=== PATIENT | male | born 1940 | race Caucasian/White ===

== ENCOUNTER → 2019-10-25 | Outpatient (CLI) | payer MEDICARE, SELFPAY | END | disposition home or self-care (01) | PROVIDERS: PCP Family Medicine; Referring Provider Family Medicine; Visit Provider Family Medicine | DX: Z20.828 Contact with and (suspected) exposure to other viral communicable diseases (principal) | CPT/HCPCS: 87635; G2023; U0003 ==

== ENCOUNTER 2019-11-27 14:36 | Inpatient (IN) | payer MEDICARE, SELFPAY ==
[2019-11-27] VITALS (15 sets, daily range): BP systolic 98–157; BP diastolic 61–74; PULSE 67–92; RESP 16–22; TEMP 36.9–38.9; O2SAT 94–99; BMI 25.1; BMI 24.2
--- NOTE | 2019-11-27 15:03 | EKG12_ITS ---
Test Reason : SICK Blood Pressure : / mmHG Vent. Rate : 085 BPM Atrial Rate : 085 BPM P-R Int : 114 ms QRS Dur : 122 ms QT Int : 382 ms P-R-T Axes : 017 -40 018 degrees QTc Int : 454 ms Sinus rhythm with Premature atrial complexes Left axis deviation Right bundle branch block Abnormal ECG Confirmed by MATEO MAO, MELANY ([id number]), news video editor GEORGINA NOGUEIRA ([id number]) on 11/30/2019 9:33:22 AM Referred By: MICHAELA Confirmed By:MELANY GALINDO MD
--- NOTE | 2019-11-27 15:08 | ED.VISSUMM ---
- ER Visit Summary Date of Service: 11/27/19 Chief Complaint: Fever History of Present Illness: The patient is a 79 M who presents with fever and chills that began early this morning. Patient states his temperature at home was up to 102. Patient admits to shaking chills. Patient states he is feeling off balance and dizzy. states the patient has been having some falls today. also states the patient has been confused today. Patient admits to a cough and some shortness of breath. states she was trying to contact patient's primary care physician who wanted the patient to go to [place] for COVID test. states they were unable to go to [place] and came to the emergency department instead. Physical Examination: Vital signs are stable. Patient is afebrile here with a temperature of 99.9. Patient is in no acute distress. Oral mucosa is pink and moist. Neck is supple. Trachea is midline. There is no JVD. Heart was regular rate and rhythm. Lungs were diminished bilaterally. There is adequate respiratory effort noted. Abdomen is soft. Bowel sounds are normal. There is no tenderness. Cranial nerves II through XII are intact. There are no focal motor or sensory deficits noted. Extremities are intact. There is no calf tenderness or edema. There is erythema and warmth over the dorsal aspect of the left hand. There is an open skin tear over this area. There is no purulent drainage. Test Results: CBC shows a leukocytosis of 28.3. Comprehensive metabolic profile showed a creatinine of 1.51 and a BUN of 41. Total bilirubin was slightly elevated at 1.3. Urinalysis shows leukocyte esterase of 25 with 5-10 white blood cells and 2+ bacteria. EKG showed normal sinus rhythm with a rate of 85. There is a right bundle branch block pattern. There are no prior EKGs available for comparison. Portable chest x-ray was obtained. There is a right lower lobe infiltrate. This was interpreted by the radiologist and reviewed by myself. COVID swab was negative. Emergency Department Course and Treatment: Patient was given a dose of Tylenol here. Patient was given a dose of morphine. Patient was started on Unasyn and Zithromax to cover both cellulitis and pneumonia. Case was discussed with the hospitalist. Patient will be admitted. Patient and family understood and were agreeable with the plan. All questions were answered. Disposition: Admit to hospital Impression: 1. Sepsis 2. Cellulitis left hand 3. Pneumonia This note was generated with SMS [employer] dictation software. It may contain incorrect words, spelling, and punctuation that were not noted in review of the chart prior to signing ED Disposition - Plan for ED Patient: Disposition: Acute Care Hospital [facility] Diagnosis: Sepsis, Pneumonia, Cellulitis of left hand Referrals: Young Badillo III, MD [Primary Care Provider] -
--- NOTE | 2019-11-27 15:45 | RAD_ITS ---
STUDY: X-RAY CHEST REASON FOR EXAM: Male, 79 years old. BALANCE PROBLEMS, UNSTEADY ON FEET. ALSO FEVER/CHILLS. ACHES ALL OVER TECHNIQUE: Frontal view of the chest COMPARISON: None. FINDINGS: There are increased markings in the right lower lung, nonspecific and suboptimally evaluated. The rest of the lungs are clear. There is no pneumothorax, pulmonary edema, cardiac megaly or pleural effusions. Osseous structures are intact. RAD/Chest 1 View (Portable) IMPRESSION: Right lower lobe interstitial markings, unclear significance. Refer to confirmatory imaging, such as CT or optimal upright PA and lateral radiography repeat. Electronically Signed: Gale Sorto, at 16:09 EDT Tel , Service support ,
[2019-11-27] MEDS: Acetaminophen 500 MG Tablet 1000 MG PO (15:48)
[2019-11-27 15:53] LABS: International Normalized Ratio 1.1; Prothrombin Time (Protime)PT. 13.6 SECONDS (11.7-14.9)
[2019-11-27 15:54] LABS: Partial Thromboplast Time 27.2 Seconds (24.1-36.2)
[2019-11-27 16:02] LABS: Absolute Lymphocyte Count 1.55 X10^3/uL (0.83-4.51); Absolute Neutrophil Count 24.5 X10^3/uL (2.0-7.7); Basophil# 0.06 X10^3/uL; Basophil% 0.2 % (0-1); Eosinophil# 0.07 X10^3/uL; Eosinophils% 0.2 % (0-5); Hematocrit 50.7 % (40-54); Hemoglobin 16.6 g/dL (13.0-16.5); Lymphocyte # 1.55 X10^3/ul (4.0); Lymphocyte % 5.5 % (19-41); Mean Corp Hgb Conc 32.7 g/dL (32-36); Mean Corpuscular Hgb 29.8 pg (27.0-32.0); Mean Platelet Vol. 10.4 fl (6.2-12.0); Monocyte# 1.84 X10^3/uL; Monocyte% 6.5 % (0-10); NRBC Flagged by Analyzer 0 % (0-5); Neutrophil # 24.54 X10^3/uL (2.7-7.7); Neutrophil % 86.6 % (47-70); POSITIVE DIFFERENTIAL YES; POSITIVE MORPHOLOGY YES; Platelet Count 235 K/mm3 (150-450); RBC Distribution Width SD 43.3 fl (35.1-43.9); Red Blood Count 5.57 M/mm3 (4.6-6.2); White Blood Count 28.3 K/mm3 (4.4-11.0)
[2019-11-27 16:05] LABS: ALB/GLOB Ratio 1.2 RATIO (0.9-2.4); AST(SGOT) 11 U/L (15-37); Alanine Aminotransfer ALT/SGPT 11 U/L (16-61); Albumin, Serum 3.8 g/dL (3.2-5.0); Alkaline Phosphatase 78 U/L (45-117); Anion Gap 6 (5-15); BUN 21 mg/dL (7-18); BUN/Creat Ratio 13.9 RATIO (10-20); Chloride 105 mmol/L (98-107); Creatinine, Serum 1.51 mg/dL (0.70-1.30); EST Glomerular Filtration Rate 48 mL/min (>60); Est Glom Filt Rate - Afr Amer 58 mL/min (>60); Estimated Creatinine Clearance 40.29 ml/min; Globulin 3.2 g/dL (2.2-4.2); Glucose 130 mg/dL (74-106); Potassium 4.1 mmol/L (3.5-5.1); Sodium Level 137 mmol/L (136-145)
[2019-11-27 16:08] LABS: Differential Indicated SCAN CRITERIA MET
[2019-11-27 16:22] LABS: Lactic Acid 1.9 mmol/L (0.4-1.9)
[2019-11-27 16:30] LABS: Differential Comment SCANNED
[2019-11-27 16:34] LABS: Color, Urine Yellow (Yellow); Glucose, Dipstick Normal (Normal); Ketone-Dipstick 15 mg/dl (Negative); Leukocyte Esterase-Dipstick 25 /ul (Negative); Nitrite-Dipstick Negative (Negative); Occult Blood-Urine 10 /ul (Negative); Protein-Dipstick 30 mg/dl (Negative); Urine Clarity Clear (Clear); Urine Urobilinogen 4 mg/dl (Normal)
[2019-11-27 16:38] LABS: Urine Bilirubin Dipstick 1 mg/dL (Negative)
[2019-11-27 16:42] LABS: Bacteria 2+ /hpf (None Seen); Mucous, Urine 3+ /hpf (<or=2+); Red Blood Cells-Urine 0-5 SEEN /hpf (0-5); White Blood Cells 5-10 SEEN /hpf (0-5)
[2019-11-27 16:43] LABS: Squamous Epithelial Cells - UA 0-5 SEEN /hpf (0-5)
[2019-11-27 16:51] LABS: Probe Check PASS; Specimen Processing Control PASS
[2019-11-27] MEDS: Morphine 4 MG/ML Syringe IV (17:04)
--- NOTE | 2019-11-27 17:45 | HP.PCM_ITS ---
History of Present Illness Date of Admission: 11/27/19 Chief Complaint: fever, chills The patient is a 79 year old M with a past medical history of COPD and BPH. He was admitted through the ED on 11/27/2019 with a complaint of fever and chills. Symptoms have been going on for 1 day and his said he woke up early this morning with a temperature of 102 Fahrenheit. He had a cough which is occasionally productive of greenish sputum. He denied any chest pain, nausea vomiting or diarrhea. He denied any frequency with urination. He admitted to some redness and swelling on the dorsum of his left hand as well as some skin tears because he had bumped himself against something. On admission in the ED, vitals showed temperature of 100.1 Fahrenheit with respiratory rate of 22 and blood pressure of 117/73. Pulse rate was 76. Chemistry showed creatinine of 1.51 with total bilirubin of 1.3, sodium of 137 and potassium of 4.1. CBC showed WBC of 28.3 with hemoglobin of 16.6 and platelets of 235. EKG showed normal sinus rhythm with no acute ST changes. This x-ray showed right lower lobe interstitial markings of unclear significance. He has been admitted to be managed for sepsis due to community-acquired pneumonia and cellulitis of the left hand. [] Past Medical History Allergies No Known Allergies Allergy (Verified 11/27/19 14:36) Home Medications: Ambulatory Orders Medication Instructions Recorded Finasteride [Proscar] 5 mg PO DAILY 02/04/17 Lisinopril 5 mg PO DAILY 11/27/19 Surgical History: no surgical history Lives: Spouse/ Significant Other Smoking Status: Heavy Smoker (>10/day) Tobacco Use: Cigarettes Alcohol: None, Heavy Drugs: None - *Family History Maternal History Items: No pertinent history Paternal History Items: No pertinent history Review of Systems Constitutional: Reports: Chills, Fever. Denies: Anorexia, Malaise, Weakness, Fatigue Eyes: Denies: Blurred vision HEENT: Denies: Head Aches, Sinus Congestion, Sinus Drainage Cardiovascular: Denies: Chest Pain, Chest Pressure, Palpitations Respiratory: Reports: Cough, Shortness of Breath, Sputum production. Denies: Shortness of breath at rest, Shortness of breath upon exertion, Wheezing Gastrointestinal: Denies: Abdominal Pain, Nausea, Vomiting Genitourinary: Denies: Dysuria Musculoskeletal: Denies: Joint Pain, Joint Tenderness Skin: Denies: Rash, Wounds Neurological: Denies: Numbness, Tingling, Focal weakness Psychiatric: Denies: Anxiety, Depression, Homicidal Ideations, Suicidal Kenneth ations Hematologic/ Lymphatic: Denies: Easy Bruising, Easy Bleeding VTE Information - Inpt Only VTE Present on Admission: No VTE Pharm Prophylaxis ordered?: Yes Patient Problems: Active and Suspected Problems Sepsis (Acute) Pneumonia (Acute) Cellulitis of left hand (Acute) - Physical Exam Vitals/I&O's: Vital Signs Temp Pulse Resp BP Pulse Ox 100.1 F H 79 22 H 117/73 95 11/27/19 17:10 11/27/19 17:10 11/27/19 17:10 11/27/19 17:10 11/27/19 17:10 Oxygen Delivery Method Room Air Weight: 175 lb Body Mass Index (BMI) 25.1 General: Alert, Oriented x3, Cooperative, No apparent distress HEENT: Atraumatic, PERRLA, EOMI, Normocephalic Oral: Moist Mucosa Neck: Supple, No JVD, Negative Carotid Bruits Lungs: - - decreased breath sounds bibasally, no wheezes or crackles. on room air. Cardiovascular: Regular rate, No murmurs Abdomen: Bowel Sounds Present, Soft, Non Tender Extremities: No edema, Capillary Refill Less than 3 Seconds Skin: No rashes, No breakdown Musculoskeletal: No Tenderness to Palpation of Joints or Extremities Lymphatic: No Cervical, Supraclavicular, or Inguinal Adenopathy Neurological: Cranial nerves II-XII grossly intact, Neuro grossly intact, Motor Exam 5/5 strength throughout Psych/Mental Status: Normal Affect, Appropriate, Alert and oriented to time, place, person, mood and affect Laboratory Results 11/27/19 15:16: COVID-19 (URVASHI) Negative 11/27/19 15:30: WBC 28.3 H, RBC 5.57, Hgb 16.6 H, Hct 50.7, MCV 91.0, MCH 29.8, MCHC 32.7, RDW Std Deviation 43.3, RDW Coeff of Taylor 13.0, Plt Count 235, MPV 10.4, Immature Gran % (Auto) 1.000 H, Neut % (Auto) 86.6 H, Lymph % (Auto) 5.5 L , [place] % (Auto) 6.5, Eos % (Auto) 0.2, Baso % (Auto) 0.2, Absolute Neuts (auto) 24.5 H, Absolute Lymphs (auto) 1.55, Nucleated RBC % 0, Differential Comment SCANNED, Diff Path Review August11/27/19 15:30: PT 13.6, INR 1.1, APTT 27.2 11/27/19 15:30: Sodium 137, Potassium 4.1, Chloride 105, Carbon Dioxide 26.0, Anion Gap 6, BUN 21 H, Creatinine 1.51 H, Estim Creat Clear Calc 40.29, Est GFR (MDRD) Af Amer 58 L, Est GFR (MDRD) Non-Af 48 L, BUN/Creatinine Ratio 13.9, Glucose 130 H, Calcium 9.0, Total Bilirubin 1.30 H, AST 11 L, ALT 11 L, Alkaline Phosphatase 78, Total Protein 7.0, Albumin 3.8, Globulin 3.2, Albumin/Globulin Ratio 1.2 11/27/19 15:30: Lactic Acid 1.9 11/27/19 16:20: Urine Color Yellow, Urine Clarity Clear, Urine pH 7.0, Ur Specific [place] 1.010, Urine Protein 30 H, Urine Glucose (UA) Normal, Urine Ketones 15 H, Urine Occult Blood 10 H, Urine Nitrite Negative, Urine Bilirubin 1 H, Urine Urobilinogen 4 H, Ur Leukocyte Esterase 25 H, Urine RBC 0-5 SEEN, Urine WBC 5-10 SEEN, Ur Squamous Epith Cells 0-5 SEEN, Urine Bacteria 2+, Urine Mucus 3+ Diagnostic Data Chest X-Ray 11/27/19 15:45 IMPRESSION: Right lower lobe interstitial markings, unclear significance. Refer to confirmatory imaging, such as CT or optimal upright PA and lateral radiography repeat. Electronically Signed: Gale Sorto, at 16:09 EDT Tel , Service support , Assessment/Plan All Active Problems Sepsis (Acute) Pneumonia (Acute) Cellulitis of left hand (Acute) 79-year-old male admitted with a complaint of fever and chills. #Sepsis due to community acquired pneumonia and cellulitis of the left hand * Admit to PCU with telemetry. * WBC is 28 respiratory rate was 22 at time of review. SIRS criteria is 2/4. Fever was also 102.1 at time of admission. * Chest x-ray showed right lower lobe interstitial markings. * Will get a PA and lateral x-ray * Started on IV azithromycin and Unasyn in the ED on account of cellulitis as well. * Will continue IV azithromycin and Unasyn. * Check urine for strep and Legionella. Blood cultures pending. Also order sputum culture. * Hydrate with IV fluid normal saline at 150 cc per hour. * COVID test was negative. * #Community-acquired pneumonia: As under sepsis. #indeterminate tropoinins: has no chest pain. Will cycle troponins. EKG showed no acute ST changes. SL nitroglycerin prn. #Cellulitis of the dorsum of the left hand: As under sepsis #Hypertension: On lisinopril. #BPH: On Proscar #DVT prophylaxis: Lovenox #CODE STATUS: Full code * Patient counseled extensively about different types of CODE STATUS including full code, DNR CCA and DNR CCA. Patient elects to be full code. * Total [id number] time 16 minutes. Inpatient E&M: 16316 Init Hosp L3 Procedures: 22764 Advncd Care Plan 30 Min
[2019-11-27] MEDS: 0.9% Normal Saline 1,000 ML 999 ML IV ×3 (18:55→20:58)
[2019-11-27] MEDS: 0.9% Normal Saline 1,000 ML 150 ML IV (21:35)
[2019-11-27] MEDS: Acetaminophen 325 MG Tablet 650 MG PO (23:47)
[2019-11-28] VITALS (9 sets, daily range): BP systolic 114–133; BP diastolic 64–76; PULSE 69–90; RESP 16–18; TEMP 36.8–37.3; O2SAT 97–99
[2019-11-28] MEDS: 0.9% Normal Saline 1,000 ML 150 ML IV (04:08)
[2019-11-28 05:48] LABS: Absolute Lymphocyte Count 2.02 X10^3/uL (0.83-4.51); Absolute Neutrophil Count 20.9 X10^3/uL (2.0-7.7); Basophil# 0.04 X10^3/uL; Basophil% 0.2 % (0-1); Eosinophil# 0.02 X10^3/uL; Eosinophils% 0.1 % (0-5); Hematocrit 43.3 % (40-54); Hemoglobin 14.1 g/dL (13.0-16.5); Lymphocyte # 2.02 X10^3/ul (4.0); Lymphocyte % 8.2 % (19-41); Mean Corp Hgb Conc 32.6 g/dL (32-36); Mean Corpuscular Hgb 30.1 pg (27.0-32.0); Mean Corpuscular Volume 92.5 fL (80-94); Mean Platelet Vol. 10.6 fl (6.2-12.0); Monocyte# 1.32 X10^3/uL; Monocyte% 5.4 % (0-10); NRBC Flagged by Analyzer 0 % (0-5); Neutrophil # 20.91 X10^3/uL (2.7-7.7); Neutrophil % 84.7 % (47-70); POSITIVE DIFFERENTIAL YES; Platelet Count 170 K/mm3 (150-450); RBC Distribution Width CV 13.1 % (11.6-14.6); RBC Distribution Width SD 44.2 fl (35.1-43.9); Red Blood Count 4.68 M/mm3 (4.6-6.2); White Blood Count 24.7 K/mm3 (4.4-11.0)
[2019-11-28 06:08] LABS: Anion Gap 4 (5-15); BUN 19 mg/dL (7-18); BUN/Creat Ratio 15.3 RATIO (10-20); Calcium,Total 8.1 mg/dL (8.5-10.1); Chloride 109 mmol/L (98-107); Creatinine, Serum 1.24 mg/dL (0.70-1.30); EST Glomerular Filtration Rate 60 mL/min (>60); Est Glom Filt Rate - Afr Amer 72 mL/min (>60); Estimated Creatinine Clearance 49.06 ml/min; Glucose 113 mg/dL (74-106); Potassium 3.7 mmol/L (3.5-5.1); Sodium Level 140 mmol/L (136-145)
[2019-11-28 06:11] LABS: Differential Indicated SCAN CRITERIA MET
[2019-11-28 06:12] LABS: Differential Comment SCANNED
[2019-11-28] MEDS: Enoxaparin 30 MG/0.3 ML Syringe SC (08:16)
[2019-11-28] MEDS: Finasteride 5 MG Tablet PO (08:16)
--- NOTE | 2019-11-28 09:25 | RAD_ITS ---
STUDY: X-RAY - LEFT HAND REASON FOR EXAM: Male, 79 years old. redness and swelling metacarpal area TECHNIQUE: 3 view(s) of the hand. COMPARISON: None. FINDINGS: There is joint space narrowing of the radiocarpal articulation consistent with degenerative arthrosis. Generative changes at radioulnar joint with decreased joint space and osteophyte formation is present. There is diffuse demineralization of the carpal bones. Normal carpal articulations There is degenerative arthrosis of the carpometacarpal articulation of the thumb with lateral subluxation of the first metacarpus. Normal second through fifth carpometacarpal joints. Generalized metacarpi. There is degenerative arthrosis of the metacarpophalangeal (MCP) joints. There is degenerative arthrosis of the interphalangeal joint of the thumb with articular joint space narrowing. There is degenerative arthrosis of the metacarpophalangeal (MCP) joints. There is diffuse articular joint space narrowing of the proximal and distal interphalangeal joints of the second through fifth fingers, but without erosive changes or periarticular soft tissue swelling. Normal phalanges of the second through fifth fingers. The soft tissue structures are unremarkable. RAD/Hand Min 3 Views IMPRESSION: Diffuse demineralization and degenerative changes as above with no evidence of acute osseous injury. Underlying soft tissue inflammation and/or early infection is not excluded. Electronically Signed: Pablo Delarosa DO at 10:10 EDT , Service support ,
--- NOTE | 2019-11-28 12:57 | PCM.PN.HOSP ---
Patient Problems: Active and Suspected Problems Sepsis (Acute) Pneumonia (Acute) Cellulitis of left hand (Acute) Subjective: Patient seen and examined. He complains of pain and swelling on the dorsum of his left hand which is worsened since yesterday. He denies any shortness of breath, fever or chills, nausea or vomiting. Review systems otherwise negative. Labs and vitals reviewed. WBC has trended down to 24.7. Vitals/I&O's: Vital Signs Temp Pulse Resp BP Pulse Ox 98.2 F 70 16 133/74 H 97 11/28/19 08:04 11/28/19 08:04 11/28/19 08:04 11/28/19 08:04 11/28/19 08:04 Oxygen Delivery Method Room Air Weight: 168 lb 13.985 oz Body Mass Index (BMI) 24.2 Intake and Output for Last 24 Hours 11/26/19 11/27/19 11/28/19 23:59 23:59 23:59 Intake Total 3159.35 / 3159.35 2267.0 / 2267.0 Output Total 400 / 400 Balance 3159.35 / 2759.35 1867.0 / 1867.0 General: Alert, Oriented x3, Cooperative, No apparent distress HEENT: Atraumatic, PERRLA, EOMI, Normocephalic Oral: Moist Mucosa Neck: Supple, No JVD, Negative Carotid Bruits Lungs: - - mildly diminished breath sounds bibasally, no wheezes or crackles. on room air. Cardiovascular: Regular rate, No murmurs Abdomen: Bowel Sounds Present, Soft, Non Tender Extremities: No edema, Capillary Refill Less than 3 Seconds Skin: No rashes, No breakdown, dorsum of right hand is swollen, erythematous- with redness extending up to mid forearm, tender to touch. Superficial abrasion on dorsum of left hand. Worse than on admission. Musculoskeletal: No Tenderness to Palpation of Joints or Extremities Lymphatic: No Cervical, Supraclavicular, or Inguinal Adenopathy Neurological: Cranial nerves II-XII grossly intact, Neuro grossly intact, Motor Exam 5/5 strength throughout Psych/Mental Status: Normal Affect, Appropriate, Alert and oriented to time, place, person, mood and affect Microbiology Past 72 Hours 11/27/19 Unknown Urine, Clean Catch Streptococcus pneumoniae Antigen (M - Final 11/27/19 Unknown Urine, Clean Catch Legionella Antigen - Final Laboratory Results 11/27/19 15:16: COVID-19 (URVASHI) Negative 11/27/19 15:30: WBC 28.3 H, RBC 5.57, Hgb 16.6 H, Hct 50.7, MCV 91.0, MCH 29.8, MCHC 32.7, RDW Std Deviation 43.3, RDW Coeff of [place] 13.0, Plt Count 235, MPV 10.4, Immature Gran % (Auto) 1.000 H, Neut % (Auto) 86.6 H, Lymph % (Auto) 5.5 L, [place] % (Auto) 6.5, Eos % (Auto) 0.2, Baso % (Auto) 0.2, Absolute Neuts (auto) 24.5 H, Absolute Lymphs (auto) 1.55, Nucleated RBC % 0, Differential Comment SCANNED, Diff Path Review August foll 11/27/19 15:30: PT 13.6, INR 1.1, APTT 27.2 11/27/19 15:30: Sodium 137, Potassium 4.1, Chloride 105, Carbon Dioxide 26.0, Anion Gap 6, BUN 21 H, Creatinine 1.51 H, Estim Creat Clear Calc 40.29, Est GFR (MDRD) Af Amer 58 L, Est GFR (MDRD) Non-Af 48 L, BUN/Creatinine Ratio 13.9, Glucose 130 H, Calcium 9.0, Total Bilirubin 1.30 H, AST 11 L, ALT 11 L, Alkaline Phosphatase 78, Total Protein 7.0, Albumin 3.8, Globulin 3.2, Albumin/Globulin Ratio 1.2 11/27/19 15:30: Lactic Acid 1.9 11/27/19 16:20: Urine Color Yellow, Urine Clarity Clear, Urine pH 7.0, Ur Specific [place] 1.010, Urine Protein 30 H, Urine Glucose (UA) Normal, Urine Ketones 15 H, Urine Occult Blood 10 H, Urine Nitrite Negative, Urine Bilirubin 1 H, Urine Urobilinogen 4 H, Ur Leukocyte Esterase 25 H, Urine RBC 0-5 SEEN, Urine WBC 5-10 SEEN, Ur Squamous Epith Cells 0-5 SEEN, Urine Bacteria 2+, Urine Mucus 3+ 11/27/19 18:46: Troponin I 0.069 H 11/27/19 21:51: Troponin I 0.074 H 11/28/19 00:35: Troponin I 0.065 H 11/28/19 04:59: WBC 24.7 H, RBC 4.68, Hgb 14.1, Hct 43.3, MCV 92.5, MCH 30.1, MCHC 32.6, RDW Std Deviation 44.2 H, RDW Coeff of [place] 13.1, Plt Count 170, MPV 10.6, Immature Gran % (Auto) 1.400 H, Neut % (Auto) 84.7 H, Lymph % (Auto) 8.2 L, [place] % (Auto) 5.4, Eos % (Auto) 0.1, Baso % (Auto) 0.2, Absolute Neuts (auto) 20.9 H, Absolute Lymphs (auto) 2.02, Nucleated RBC % 0, Differential Comment SCANNED 11/28/19 04:59: Sodium 140, Potassium 3.7, Chloride 109 H, Carbon Dioxide 27.0, Anion Gap 4 L, BUN 19 H, Creatinine 1.24, Estim Creat Clear Calc 49.06, Est GFR (MDRD) Af Amer 72, Est GFR (MDRD) Non-Af 60, BUN/Creatinine Ratio 15.3, Glucose 113 H, Calcium 8.1 L Current Medications Acetaminophen (Tylenol) 650 mg PO Q6H PRN PRN PRN Reason: Pain Score 1-10/Temp > 100.7 F Last Admin: 11/27/19 23:47 Dose: 650 mg Documented by: Enoxaparin Sodium (Lovenox) 30 mg SC DAILY [facility] Last Admin: 11/28/19 08:16 Dose: 30 mg Documented by: Finasteride (Proscar) 5 mg PO DAILY [facility] Last Admin: 11/28/19 08:16 Dose: 5 mg Documented by: Guaifenesin (Robitussin) 20 ml PO Q4H PRN PRN PRN Reason: COUGH Ampicillin Sodium/Sulbactam (Sodium 3 gm/ Sodium Chloride) 112 mls @ 150 mls/hr IV Q6 [facility] Last Infusion: 11/28/19 12:30 Dose: Infused Documented by: Azithromycin 500 mg/ Dextrose 255 mls @ 250 mls/hr IV Q24@2200 [facility] Sodium Chloride () 500 mls @ 15 mls/hr IV PRN PRN PRN Reason: Blood Transfusion Sodium Chloride () 250 mls @ 15 mls/hr IV .[id number] PRN PRN Reason: Saline Flush Sodium Chloride () 250 mls @ 15 mls/hr IV .[id number] PRN PRN Reason: Additional IVPB Infusion Nitroglycerin (Nitrostat) 0.4 mg SUBLINGUAL Q5M PRN PRN Reason: CARDIAC/CHEST PAIN Nutritional Formula (Lactose Free) (Ensure Enlive) 120 ml PO 4X/DAY POOJA Last Admin: 11/28/19 12:32 Dose: 120 ml Documented by: Ondansetron HCl (Zofran) 4 mg IV Q8H PRN PRN PRN Reason: NAUSEA/VOMITING Sodium Chloride () 10 - 40 ml IV UD PRN PRN Reason: SALINE FLUSH Medical Necessity - Tobacco Use Smoking Status: Heavy Smoker (>10/day) Tobacco Use: Cigarettes Assessment/Plan All Active Problems Sepsis (Acute) Pneumonia (Acute) Cellulitis of left hand (Acute) 79-year-old male admitted with a complaint of fever and chills. #Sepsis due to community acquired pneumonia and cellulitis of the left hand wbc is down to 24.7 today swelling of dorsum of left hand is worse today; I think this may be due to wrap placed on the left wrist. Left wrist bandage removed. on IV unasyn and azithromycin urine for strep and legionella are negative. blood cultures pending COVID test was negative. #Community-acquired pneumonia: As under sepsis. #Cellulitis of the dorsum of the left hand As under sepsis. xray of the left hand done today o.a of worsening swelling showed diffuse demineralisation and degenerative changes with no evidence of acute osseous injury, with underlying soft tissue inflammation and/or early infection not excluded on IV unasyn plastic surgery consulted. #Indeterminate troponins: Initial troponin was 0.074 and trended down to 0.065. Patient has no chest pain. Patient absolutely fuses to have a stress test as he says 2 of his friends had stress test in the diet subsequently. Patient said he was 79 years and felt that if he was this time to go at this time to go. Despite counseling, patient still refused to have stress test if needed. #Hypertension: On lisinopril. #BPH: On Proscar #DVT prophylaxis: Lovenox #CODE STATUS: Full code Inpatient E&M: 57796 Subs Hosp L3
--- NOTE | 2019-11-28 19:29 | CPS ---
pt refused cont pox -nurse aware
[2019-11-28] MEDS: Acetaminophen 325 MG Tablet 650 MG PO (23:21)
[2019-11-29] VITALS (11 sets, daily range): BP systolic 119–161; BP diastolic 50–87; PULSE 55–81; RESP 14–18; TEMP 36.6–37.1; O2SAT 97–99
[2019-11-29] MEDS: 0.9% Saline Lock 10 ML Syringe IV ×3 (05:02→18:20)
[2019-11-29 06:04] LABS: Absolute Neutrophil Count 13.5 X10^3/uL (2.0-7.7); Basophil# 0.04 X10^3/uL; Basophil% 0.2 % (0-1); Eosinophil# 0.16 X10^3/uL; Eosinophils% 0.9 % (0-5); Hemoglobin 14.7 g/dL (13.0-16.5); Mean Corp Hgb Conc 33.4 g/dL (32-36); Mean Corpuscular Hgb 30.5 pg (27.0-32.0); Mean Corpuscular Volume 91.3 fL (80-94); Mean Platelet Vol. 10.8 fl (6.2-12.0); Monocyte% 5.2 % (0-10); NRBC Flagged by Analyzer 0 % (0-5); Neutrophil # 13.53 X10^3/uL (2.7-7.7); Neutrophil % 78.9 % (47-70); Platelet Count 162 K/mm3 (150-450); RBC Distribution Width CV 13.2 % (11.6-14.6); RBC Distribution Width SD 43.6 fl (35.1-43.9); Red Blood Count 4.82 M/mm3 (4.6-6.2); White Blood Count 17.2 K/mm3 (4.4-11.0)
[2019-11-29 06:28] LABS: Anion Gap 4 (5-15); BUN 17 mg/dL (7-18); BUN/Creat Ratio 15.9 RATIO (10-20); Calcium,Total 8.5 mg/dL (8.5-10.1); Chloride 113 mmol/L (98-107); Creatinine, Serum 1.07 mg/dL (0.70-1.30); EST Glomerular Filtration Rate 71 mL/min (>60); Est Glom Filt Rate - Afr Amer 86 mL/min (>60); Estimated Creatinine Clearance 56.85 ml/min; Glucose 97 mg/dL (74-106); Magnesium 1.9 mg/dL (1.6-2.6); Potassium 3.6 mmol/L (3.5-5.1); Sodium Level 143 mmol/L (136-145)
[2019-11-29] MEDS: Finasteride 5 MG Tablet PO (09:55)
--- NOTE | 2019-11-29 11:14 | PCM.CONS.GEN ---
Reason for Consult Date of Consultation: 11/29/19 Reason for Consultation: Infected open wound dorsum left hand with cellulitis. REFERRING PHYSICIAN: Dr. Barnhart. FREIGHT MANAGER: Dr. Espinoza. History of Present Illness: The patient is a 79 year old M who was admitted on 11/27/19 with a complaint of fever and chills. He had a cough which is occasionally productive of greenish sputum. He denied any chest pain, nausea vomiting or diarrhea. It was also noted he had increasing redness and swelling on the dorsum of his left hand with an open wound on the dorsum that the patient thinks he bumped his hand against something. He states his skin tears easily. Admission temp was 102.1. WBC was 28.3. Chest x-ray showed evidence of community acquired pneumonia. Left hand x-ray showed no fractures or bony abnormalities or foreign body. Has some degenerative changes. He met septic criteria. He was started on Unasyn and Azithromycin. His WBC has improved to 17.2. He is afebrile. He is breathing a little easier. He states his redness and swelling left hand have improved since starting the IV antibiotics. I was asked to evaluate this patient for surgical options for treatment. Past Medical History Past Medical History (Chronic Problems): Chronic Problems Smoker (Chronic) Allergies No Known Allergies Allergy (Verified 11/27/19 14:36) Home Medications: Ambulatory Orders Medication Instructions Recorded Finasteride [Proscar] 5 mg PO DAILY 02/04/17 Lisinopril 5 mg PO DAILY 11/27/19 Doxycycline [Vibramycin] 100 mg PO BID 7 Days #14 cap 11/30/19 Surgical History: no surgical history Lives: Spouse/ Significant Other Smoking Status: Heavy Smoker (>10/day) Tobacco Use: Cigarettes Alcohol: None, Heavy Drugs: None - *Family History Maternal History Items: No pertinent history Paternal History Items: No pertinent history Review of Systems Comment: Constitutional: Reports: Chills, Fever. Denies: Anorexia, Malaise, Weakness, Fatigue. Eyes: Denies: Blurred vision. HEENT: Denies: Head Aches, Sinus Congestion, Sinus Drainage. Cardiovascular: Denies: Chest Pain, Chest Pressure, Palpitations. Respiratory: Reports: Cough, Shortness of Breath, Sputum production. Denies: Shortness of breath at rest, Shortness of breath upon exertion, Wheezing. Gastrointestinal: Denies: Abdominal Pain, Nausea, Vomiting. Genitourinary: Denies: Dysuria. Musculoskeletal: Denies: Joint Pain, Joint Tenderness. Skin: Denies: Rash, Wounds. Neurological: Denies: Numbness, Tingling, Focal weakness. Psychiatric: Denies: Anxiety, Depression, Homicidal Ideations, Suicidal Ideations. Hematologic/ Lymphatic: Denies: Easy Bruising, Easy Bleeding Patient Problems: Active and Suspected Problems Sepsis (Acute) Pneumonia (Acute) Cellulitis of left hand (Acute) - Physical Exam Vitals/I&O's: General: Alert, Oriented x3, Cooperative. HEENT: PERRLA, EOMI. Oral: Moist Mucosa Neck: Supple, nontender. No cervical adenopathy. Lungs: - - Decreased breath sounds at the bases. No wheezes. Cardiovascular: Regular rate and rhythm. Abdomen: Soft, Nondistended. Extremities: Patient is right hand dominant. On the left hand there is mild swelling and redness dorsum of hand and extending onto the MP joints. He can make a fist. Fingers are warm with good capillary refill. Radial pulses are palpable. No axillary adenopathy. No sensory deficits. On the dorsum left hand by long finger is a traumatic open wound that measures 1 x 1 cm. Some yellowish drainage was expressed. No purulence noted. Lymphatic: No Cervical, Supraclavicular, or Inguinal Adenopathy Neurological: Cranial nerves II-XII grossly intact. Psych/Mental Status: Normal Affect, Appropriate. Vital Signs Temp Pulse Resp BP Pulse Ox 97.9 F 75 16 138/74 H 99 11/29/19 09:48 11/29/19 09:48 11/29/19 09:48 11/29/19 09:48 11/29/19 09:48 Oxygen Delivery Method Room Air Weight: 168 lb 13.985 oz Body Mass Index (BMI) 24.2 Intake and Output for Last 24 Hours 11/27/19 11/28/19 11/29/19 23:59 23:59 23:59 Intake Total 3159.35 / 3159.35 2634.25 / 2634.25 224 / 224 Output Total 400 / 400 Balance 3159.35 / 2759.35 2234.25 / 2234.25 224 / 224 Microbiology Past 72 Hours 11/27/19 16:20 Urine, Clean Catch Urine Culture - Final Mixed Gram Positive Organisms 11/27/19 Unknown Urine, Clean Catch Streptococcus pneumoniae Antigen (M - Final 11/27/19 Unknown Urine, Clean Catch Legionella Antigen - Final Laboratory Results 11/29/19 05:25: WBC 17.2 H, RBC 4.82, Hgb 14.7, Hct 44.0, MCV 91.3, MCH 30.5, MCHC 33.4, RDW Std Deviation 43.6, RDW Coeff of Taylor 13.2, Plt Count 162, MPV 10.8, Immature Gran % (Auto) 0.800, Neut % (Auto) 78.9 H, Lymph % (Auto) 14.0 L, [place]ell % (Auto) 5.2, Eos % (Auto) 0.9, Baso % (Auto) 0.2, Absolute Neuts (auto) 13.5 H, Absolute Lymphs (auto) 2.40, Nucleated RBC % 0 11/29/19 05:25: Sodium 143, Potassium 3.6, Chloride 113 H, Carbon Dioxide 26.0, Anion Gap 4 L, BUN 17, Creatinine 1.07, Estim Creat Clear Calc 56.85, Est GFR (MDRD) Af Amer 86, Est GFR (MDRD) Non-Af 71, BUN/Creatinine Ratio 15.9, Glucose 97, Calcium 8.5, Magnesium 1.9 Diagnostic Data Chest X-Ray 11/27/19 15:45 IMPRESSION: Right lower lobe interstitial markings, unclear significance. Refer to confirmatory imaging, such as CT or optimal upright PA and lateral radiography repeat. Electronically Signed: Gale Sorto, at 16:09 EDT Tel , Service support , Hand X-Ray 11/28/19 09:25 IMPRESSION: Diffuse demineralization and degenerative changes as above with no evidence of acute osseous injury. Underlying soft tissue inflammation and/or early infection is not excluded. Electronically Signed: Pablo Delarosa DO at 10:10 EDT , Service support , Current Medications Acetaminophen (Tylenol) 650 mg PO Q6H PRN PRN PRN Reason: Pain Score 1-10/Temp > 100.7 F Last Admin: 11/28/19 23:21 Dose: 650 mg Documented by: Enoxaparin Sodium (Lovenox) 30 mg SC DAILY [facility] Last Admin: 11/28/19 08:16 Dose: 30 mg Documented by: Finasteride (Proscar) 5 mg PO DAILY [facility] Last Admin: 11/29/19 09:55 Dose: 5 mg Documented by: Guaifenesin (Robitussin) 20 ml PO Q4H PRN PRN PRN Reason: COUGH Ampicillin Sodium/Sulbactam (Sodium 3 gm/ Sodium Chloride) 112 mls @ 150 mls/hr IV Q6 [facility] Last Infusion: 11/29/19 05:50 Dose: Infused Documented by: Azithromycin 500 mg/ Dextrose 255 mls @ 250 mls/hr IV Q24@2200 [facility] Last Infusion: 11/28/19 22:42 Dose: Infused Documented by: Sodium Chloride () 500 mls @ 15 mls/hr IV PRN PRN PRN Reason: Blood Transfusion Sodium Chloride () 250 mls @ 15 mls/hr IV .[id number] PRN PRN Reason: Saline Flush Last Infusion: 11/28/19 20:58 Dose: 0 mls/hr Documented by: Sodium Chloride () 250 mls @ 15 mls/hr IV .[id number] PRN PRN Reason: Additional IVPB Infusion Nitroglycerin (Nitrostat) 0.4 mg SUBLINGUAL Q5M PRN PRN Reason: CARDIAC/CHEST PAIN Nutritional Formula (Lactose Free) (Ensure Enlive) 120 ml PO 4X/DAY [facility] Last Admin: 11/29/19 09:56 Dose: Not Given Documented by: Ondansetron HCl (Zofran) 4 mg IV Q8H PRN PRN PRN Reason: NAUSEA/VOMITING Sodium Chloride () 10 - 40 ml IV UD PRN PRN Reason: SALINE FLUSH Last Admin: 11/29/19 05:02 Dose: 10 ml Documented by: Assessment/Plan All Active Problems Open wound of left hand with complication (Acute) Sepsis (Acute) Pneumonia (Acute) Cellulitis of left hand (Acute) 1. Infected open wound dorsum left hand with cellulitis, resolving. 2. Community acquired pneumonia, resolving. 3. Sepsis, resolving. 4. Smoker. Left hand x-ray reviewed. No fractures seen. No bony abnormalities except for degenerative changes. No foreign body. Continue IV antibiotics for one more day. As long as his WBC continues to improve and his left hand continues to clinically improve, then can be discharged on po antibiotics. A wound culture was obtained today. A positive culture may necessitate antibiotic modification. Change the wound care the Aquacel Silver dressing changes to be done daily. Can cover the Silver dressing with a small juan wrap just to cover the palm and dorsum of the hand to help with swelling and to keep the Silver in place without having to use tape since his skin is thin. He is able to make a fist. Encourage range of motion exercises to minimize stiffness. If he has difficulty after discharge, will have him evaluated by OT for range of motion exercises, strengthening, and edema management. Encourage nutritional supplementation with protein to help the healing process. With the improvement noted in his left hand, will hold off on surgery at this time. Will followup in the office in a week to monitor the healing of the wound and to make sure the infection doesn't recur. If the infection were to worsen after discharge then he would need readmission at that point followed by operative intervention with incision and drainage and excisional debridement of the area of infection. Postop wound care with Silver dressing changes would begin. After stabilization of the wound, can then proceed with delayed closure with skin grafting. Patient was informed of the risks and complications of the procedure including alternatives to surgery. These were discussed with the patient personally. Patient voices understanding and wishes to proceed with the current plan of wound care and antibiotics. He understands that surgery may be needed in the future if the situation were to worsen. Keep left hand elevated. Encouraged patient to stop smoking as it may have deleterious effects on wound healing. Inpatient E&M: 85941 Init Hosp L2 - ICD-10 - L03.114, S61.402A, J18.9, A41.9, F17.200
[2019-11-29] MEDS: Enoxaparin 30 MG/0.3 ML Syringe SC (11:26)
[2019-11-29] MEDS: Acetaminophen 325 MG Tablet 650 MG PO (11:37)
--- NOTE | 2019-11-29 11:38 | CASEMGMT ---
FARIHA OVALLES assessment: Face to Face with patient for initial transition planning/care coordination assessment. FARIHA OVALLES introduced self and role at [facility], pt voices understanding and consents to assessment at this time. Pt is sitting up in chair in no distress at this time. Pt is A/Ox4 at this time and answers all questions appropriately at this time. Pt's is at bedside during assessment. Care providers, pharmacy, and demographics verified at this time. Presentation: Balance problems, unsteady on feet. also c/o fever/chills, aches all over Admitting dx: Pna, cellulitis, sepsis PCP: Justino PRASAD Specialists: Gregorio, surgeon; navarro Rincon Preferred Pharmacy: [facility] Insurance: [facility] Prescription Benefit: [employer] Living Will/HPOA: Pt states does not have LW/HPOA and declines AD info at this time. LNOK: Isabella Pearce, Living Arrangements: Pt states lives with in 1 story home and states no concerns at home at this time. Pt states is independent at ADL's. Transportation: Pt states drives self and states no transportation concerns at this time. DME/HHC: Pt states has a cane but does not use. Pt states no need for any further DME. Pt states no hx of HHC or SNF in the past. Pt states no concerns with going home at time of discharge. Pt is retired. Pt states smokes about a pk/day of cigarettes and does not drink ETOH. Pt states no further concerns/needs at this time. CM to follow for any further discharge planning/needs. Advised pt to ask for CM if any further questions/concerns/needs arise, voices understanding. Pt Goal: Home Plan: [place] FARIHA OVALLES
--- NOTE | 2019-11-29 12:16 | PCM.PN.HOSP ---
Patient Problems: Active and Suspected Problems Sepsis (Acute) Pneumonia (Acute) Cellulitis of left hand (Acute) Subjective: Patient seen and examined. He feels much better today. The swelling on the dorsum of his left hand has improved markedly. He states he is able to make a fist now and pain is much better. Review of systems otherwise negative. He has remained hemodynamically stable. WBC has trended down to 17. Vitals/I&O's: Vital Signs Temp Pulse Resp BP Pulse Ox 97.9 F 75 16 138/74 H 99 11/29/19 09:48 11/29/19 09:48 11/29/19 09:48 11/29/19 09:48 11/29/19 09:48 Oxygen Delivery Method Room Air Weight: 168 lb 13.985 oz Body Mass Index (BMI) 24.2 Intake and Output for Last 24 Hours 11/27/19 11/28/19 11/29/19 23:59 23:59 23:59 Intake Total 3159.35 / 3159.35 2634.25 / 2634.25 744 / 744 Output Total 400 / 400 Balance 3159.35 / 2759.35 2234.25 / 2234.25 744 / 744 General: Alert, Oriented x3, Cooperative, No apparent distress HEENT: Atraumatic, PERRLA, EOMI, Normocephalic Oral: Moist Mucosa Neck: Supple, No JVD, Negative Carotid Bruits Lungs: - - mildly diminished breath sounds bibasally, no wheezes or crackles. on room air. Cardiovascular: Regular rate, No murmurs Abdomen: Bowel Sounds Present, Soft, Non Tender Extremities: No edema, Capillary Refill Less than 3 Seconds Skin: No rashes, No breakdown, swelling on dorsum of right hand is much better, patient able to make a fist now. less tender and minimal differential warmth and erythema. Musculoskeletal: No Tenderness to Palpation of Joints or Extremities Lymphatic: No Cervical, Supraclavicular, or Inguinal Adenopathy Neurological: Cranial nerves II-XII grossly intact, Neuro grossly intact, Motor Exam 5/5 strength throughout Psych/Mental Status: Normal Affect, Appropriate, Alert and oriented to time, place, person, mood and affect Microbiology Past 72 Hours 11/27/19 16:20 Urine, Clean Catch Urine Culture - Final Mixed Gram Positive Organisms 11/27/19 Unknown Urine, Clean Catch Streptococcus pneumoniae Antigen (M - Final 11/27/19 Unknown Urine, Clean Catch Legionella Antigen - Final Laboratory Results 11/29/19 05:25: WBC 17.2 H, RBC 4.82, Hgb 14.7, Hct 44.0, MCV 91.3, MCH 30.5, MCHC 33.4, RDW Std Deviation 43.6, RDW Coeff of Taylor 13.2, Plt Count 162, MPV 10.8, Immature Gran % (Auto) 0.800, Neut % (Auto) 78.9 H, Lymph % (Auto) 14.0 L, [place] % (Auto) 5.2, Eos % (Auto) 0.9, Baso % (Auto) 0.2, Absolute Neuts (auto) 13.5 H, Absolute Lymphs (auto) 2.40, Nucleated RBC % 0 11/29/19 05:25: Sodium 143, Potassium 3.6, Chloride 113 H, Carbon Dioxide 26.0, Anion Gap 4 L, BUN 17, Creatinine 1.07, Estim Creat Clear Calc 56.85, Est GFR (MDRD) Af Amer 86, Est GFR (MDRD) Non-Af 71, BUN/Creatinine Ratio 15.9, Glucose 97, Calcium 8.5, Magnesium 1.9 Diagnostic Data Chest X-Ray 11/27/19 15:45 IMPRESSION: Right lower lobe interstitial markings, unclear significance. Refer to confirmatory imaging, such as CT or optimal upright PA and lateral radiography repeat. Electronically Signed: Gale Sorto, at 16:09 EDT Tel , Service support , Hand X-Ray 11/28/19 09:25 IMPRESSION: Diffuse demineralization and degenerative changes as above with no evidence of acute osseous injury. Underlying soft tissue inflammation and/or early infection is not excluded. Electronically Signed: Pablo Delarosa, at 10:10 EDT , Service support , Current Medications Acetaminophen (Tylenol) 650 mg PO Q6H PRN PRN PRN Reason: Pain Score 1-10/Temp > 100.7 F Last Admin: 11/29/19 11:37 Dose: 650 mg Documented by: Enoxaparin Sodium (Lovenox) 30 mg SC DAILY [facility] Last Admin: 11/29/19 11:26 Dose: 30 mg Documented by: Finasteride (Proscar) 5 mg PO DAILY [facility] Last Admin: 11/29/19 09:55 Dose: 5 mg Documented by: Guaifenesin (Robitussin) 20 ml PO Q4H PRN PRN PRN Reason: COUGH Ampicillin Sodium/Sulbactam (Sodium 3 gm/ Sodium Chloride) 112 mls @ 150 mls/hr IV Q6 [facility] Last Admin: 11/29/19 11:25 Dose: 150 mls/hr Documented by: Azithromycin 500 mg/ Dextrose 255 mls @ 250 mls/hr IV Q24@2200 [facility] Last Infusion: 11/28/19 22:42 Dose: Infused Documented by: Sodium Chloride () 500 mls @ 15 mls/hr IV PRN PRN PRN Reason: Blood Transfusion Sodium Chloride () 250 mls @ 15 mls/hr IV .[id number] PRN PRN Reason: Saline Flush Last Infusion: 11/28/19 20:58 Dose: 0 mls/hr Documented by: Sodium Chloride () 250 mls @ 15 mls/hr IV .[id number] PRN PRN Reason: Additional IVPB Infusion Nitroglycerin (Nitrostat) 0.4 mg SUBLINGUAL Q5M PRN PRN Reason: CARDIAC/CHEST PAIN Nutritional Formula (Lactose Free) (Ensure Enlive) 120 ml PO 4X/DAY [facility] Last Admin: 11/29/19 09:56 Dose: Not Given Documented by: Ondansetron HCl (Zofran) 4 mg IV Q8H PRN PRN PRN Reason: NAUSEA/VOMITING Sodium Chloride () 10 - 40 ml IV UD PRN PRN Reason: SALINE FLUSH Last Admin: 11/29/19 11:25 Dose: 20 ml Documented by: STROKE Vital Signs/Narrative: Vital Signs Temp Pulse Resp BP Pulse Ox 11/29/19 09:48 97.9 F 75 16 138/74 H 99 Medical Necessity - Tobacco Use Smoking Status: Heavy Smoker (>10/day) Tobacco Use: Cigarettes Assessment/Plan All Active Problems Sepsis (Acute) Pneumonia (Acute) Cellulitis of left hand (Acute) #Sepsis due to community acquired pneumonia and cellulitis of the left hand WBC is down to 17 today. Swelling on dorsum of left hand is much better today and patient is able to make a fist. Redness and tenderness is also much better hospitalist erythema. On IV Unasyn and azithromycin. Plastic surgery reviewed patient and advocated conservative management for now with continuation of IV antibiotics. #Community-acquired pneumonia: As under sepsis. #Cellulitis of the dorsum of the left hand As under sepsis. on IV unasyn As under sepsis. #Indeterminate troponins: Initial troponin was 0.074 and trended down to 0.065. Patient has no chest pain. Patient still adamantly refuses to have a stress test. f #Hypertension: On lisinopril. #BPH: On Proscar #DVT prophylaxis: Lovenox #CODE STATUS: Full code Inpatient E&M: 82061 Subs Hosp L2
[2019-11-29 12:56] LABS: Pathologist Review Reviewed
[2019-11-30 02:15] VITALS: BP 144/68; PULSE 67; RESP 18; TEMP 36.7; O2SAT 98
[2019-11-30 03:22] VITALS: PULSE 56
[2019-11-30] MEDS: 0.9% Saline Lock 10 ML Syringe IV ×3 (06:03→12:40)
[2019-11-30 06:56] LABS: Anion Gap 8 (5-15); BUN 19 mg/dL (7-18); BUN/Creat Ratio 12.6 RATIO (10-20); Calcium,Total 8.6 mg/dL (8.5-10.1); Chloride 109 mmol/L (98-107); Creatinine, Serum 1.51 mg/dL (0.70-1.30); EST Glomerular Filtration Rate 48 mL/min (>60); Est Glom Filt Rate - Afr Amer 58 mL/min (>60); Estimated Creatinine Clearance 40.29 ml/min; Glucose 98 mg/dL (74-106); Potassium 4.4 mmol/L (3.5-5.1); Sodium Level 139 mmol/L (136-145)
[2019-11-30 07:00] VITALS: PULSE 68
[2019-11-30 07:55] LABS: Differential Comment MANUAL DIFF; Lymphocyte 25 % (19-41); Monocyte 3 % (0-10); Neutrophil-Segmented 72 % (47-70); Platelet Estimate ADEQUATE (ADEQ); Red Cell Morphology NORM C+C NORMAL (NORM C&C); Total Cells Counted 100 (MANUAL DIFF)
[2019-11-30 08:15] VITALS: BP 151/97; PULSE 61; RESP 18; TEMP 36.5; O2SAT 100
[2019-11-30 08:35] LABS: Absolute Lymphocyte Count 2.14 X10^3/uL (0.83-4.51); Absolute Neutrophil Count 8.5 X10^3/uL (2.0-7.7); Basophil# 0.05 X10^3/uL; Basophil% 0.4 % (0-1); Eosinophil# 0.15 X10^3/uL; Eosinophils% 1.3 % (0-5); Hemoglobin 14.6 g/dL (13.0-16.5); Lymphocyte # 2.14 X10^3/ul (4.0); Lymphocyte % 18.6 % (19-41); Mean Corpuscular Hgb 31.5 pg (27.0-32.0); Mean Corpuscular Volume 92.7 fL (80-94); Mean Platelet Vol. 11.5 fl (6.2-12.0); Monocyte% 5.2 % (0-10); NRBC Flagged by Analyzer 0 % (0-5); Neutrophil # 8.49 X10^3/uL (2.7-7.7); Neutrophil % 74.1 % (47-70); Platelet Count 167 K/mm3 (150-450); RBC Distribution Width CV 13.4 % (11.6-14.6); RBC Distribution Width SD 44.6 fl (35.1-43.9); Red Blood Count 4.64 M/mm3 (4.6-6.2); White Blood Count 11.5 K/mm3 (4.4-11.0)
[2019-11-30] MEDS: Finasteride 5 MG Tablet PO (09:18)
[2019-11-30] MEDS: Enoxaparin 30 MG/0.3 ML Syringe SC (09:18)
[2019-11-30 11:00] VITALS: PULSE 59
--- NOTE | 2019-11-30 11:29 | PCM.DC ---
- Discharge Diagnoses Current Active Problems: Current Active and Chronic Problems Sepsis (Acute) Pneumonia (Acute) Cellulitis of left hand (Acute) You will use the following diet at home:: Cardiac Your food should be the consistency of: Regular Your liquids should be the consistency of: Regular/Thin Discharge Activity: Return to Normal Activity Weight Bearing Status: Weight bearing as tolerated Call your doctor if you observe: Fever of 101 or Higher, Coldness, Increased Pain, Shortness of breath, Dizziness Allergies/Adverse Reactions: Allergies No Known Allergies Allergy (Verified 11/27/19 14:36) Medications to take at Discharge Finasteride [Proscar] 5 mg PO DAILY 02/04/17 Lisinopril 5 mg PO DAILY 11/27/19 Doxycycline [Vibramycin] 100 mg PO BID 7 Days #14 cap 11/30/19 The following prescriptions were given: Doxycycline [Vibramycin] 100 mg PO BID 7 Days #14 cap Transmission Status: Pending to [facility]/pharmacy #[id number] Primary Care Physician: Young Badillo III, MD [Primary Care Provider] - Please follow up with your Primary Care Physician in: 1-2 weeks Test Results: Test results from this visit will be discussed in further detail at your follow-up appointment, if applicable. Please Follow Up With: Jesus Espinoza MD When: 1-2 weeks Proposed Discharge Date: 11/30/19
--- NOTE | 2019-11-30 12:20 | PHA.DC.MC ---
Pharmacy Service has performed discharge medication reconciliation and counseling for this patient. 1. DOXYCYCLINE 100MG PO BID X 7DAYS The patient's discharge medication list was reviewed for discrepancies and discrepancies were resolved. Home Medications Finasteride [Proscar] 5 mg PO DAILY 02/04/17 Lisinopril 5 mg PO DAILY 11/27/19 Doxycycline [Vibramycin] 100 mg PO BID 7 Days #14 cap 11/30/19 The patient was counseled on the following discharge medications and changes in medications for homegoing were reviewed. The Reason for Use, instructions for use, and potential side effects were reviewed for all new medications. The patient's questions regarding all of their medications were answered. The patient was able to verbally demonstrate an understanding of their discharge medications. Patient counseled by pharmacy technician program directorDennis.
[2019-11-30 12:40] VITALS: BP 162/82; PULSE 53; RESP 18; TEMP 36.7; O2SAT 100
--- NOTE | 2019-11-30 15:06 | DS.PCM_ITS ---
Discharge Date and Diagnosis Date of Admission: 11/27/19 Date of Discharge: 11/30/19 - Primary Discharge Diagnosis Acute Problems: sepsis community acquired pneumonia left hand cellulitis - Secondary Discharge Diagnosis Chronic Problems: Chronic Problems Smoker (Chronic) Hospital Course and Treatment Imaging Results: Diagnostic Data Chest X-Ray 11/27/19 15:45 IMPRESSION: Right lower lobe interstitial markings, unclear significance. Refer to confirmatory imaging, such as CT or optimal upright PA and lateral radiography repeat. Electronically Signed: Gale Sorto, at 16:09 EDT Tel , Service support , Hand X-Ray 11/28/19 09:25 IMPRESSION: Diffuse demineralization and degenerative changes as above with no evidence of acute osseous injury. Underlying soft tissue inflammation and/or early infection is not excluded. Electronically Signed: Pablo Delarosa, at 10:10 EDT , Service support , plastic surgery- Dr Espinoza Operations: None Procedures: None Summary of Care Provided: The patient is a 79 year old M with a past medical history of COPD and BPH. He was admitted through the ED on 11/27/2019 with a complaint of fever and chills. Symptoms have been going on for 1 day and his said he woke up early this morning with a temperature of 102 Fahrenheit. He had a cough which is occasionally productive of greenish sputum. He denied any chest pain, nausea vomiting or diarrhea. He denied any frequency with urination. He admitted to some redness and swelling on the dorsum of his left hand as well as some skin tears because he had bumped himself against something. On admission in the ED, vitals showed temperature of 100.1 Fahrenheit with respiratory rate of 22 and blood pressure of 117/73. Pulse rate was 76. Chemistry showed creatinine of 1.51 with total bilirubin of 1.3, sodium of 137 and potassium of 4.1. CBC showed WBC of 28.3 with hemoglobin of 16.6 and platelets of 235. EKG showed normal sinus rhythm with no acute ST changes. This x-ray showed right lower lobe interstitial markings of unclear significance. He was admitted to be managed for sepsis due to community-acquired pneumonia and cellulitis of the left hand. He was started on IV unasyn and IV azithromycin. Wbc subsequently trended downwards to a taylor of 11.5. He had worsening swelling of his left hand, with associated increase in pain and inability to make a fist. Plastic suergery was consulted, though symptoms improved after a wrap on left hand was removed. His troponins were intermediate, and a stress test was offered to patient. Patient however adamantly refused, and he said he had 2 friends who had stress tests and shortly afterwards, so he was not willing to do the stress test. He said he was old, and was ready to , and didnt want any further workup. Plastic surgery reviewed patient and advocated for conservative management. Blood culture showed no growth after 48 hours and wound culture from the dorsum of the left hand showed gram-positive organisms with rare growth. Patient remained stable and was discharged on 11/30/2019 with a prescription for p.o. doxycycline. He is follow-up with his primary care doctor and to follow-up with plastic surgery as well. Of note, on day of discharge, patient refused to wait for plastic surgery evaluation. Patient seen and examined prior to discharge. He had no complaints and felt well. Review systems otherwise negative. Labs and vitals reviewed. Home medication reviewed and reconciled. O?E: Vital Signs Temp Pulse Resp BP Pulse Ox 98.0 F 53 L 18 162/82 H 100 11/30/19 12:40 11/30/19 12:40 11/30/19 12:40 11/30/19 12:40 11/30/19 12:40 General: Alert, Oriented x3, Cooperative, No apparent distress HEENT: Atraumatic, PERRLA, EOMI, Normocephalic Oral: Moist Mucosa Neck: Supple, No JVD, Negative Carotid Bruits Lungs: - - mildly diminished breath sounds bibasally, no wheezes or crackles. on room air. Cardiovascular: Regular rate, No murmurs Abdomen: Bowel Sounds Present, Soft, Non Tender Extremities: No edema, Capillary Refill Less than 3 Seconds Skin: No rashes, No breakdown, swelling on dorsum of right hand is much better, Musculoskeletal: No Tenderness to Palpation of Joints or Extremities Lymphatic: No Cervical, Supraclavicular, or Inguinal Adenopathy Neurological: Cranial nerves II-XII grossly intact, Neuro grossly intact, Motor Exam 5/5 strength throughout Psych/Mental Status: Normal Affect, Appropriate, Alert and oriented to time, place, person, mood and affect Plan is for discharge home today. - Physical Exam Vitals/I&O's: Vital Signs Temp Pulse Resp BP Pulse Ox 98.0 F 53 L 18 162/82 H 100 11/30/19 12:40 11/30/19 12:40 11/30/19 12:40 11/30/19 12:40 11/30/19 12:40 Oxygen Delivery Method Room Air Weight: 168 lb 13.985 oz Body Mass Index (BMI) 24.2 Intake and Output for Last 24 Hours 11/28/19 11/29/19 11/30/19 23:59 23:59 23:59 Intake Total 2634.25 / 2634.25 1952.5 / 1952.5 562.5 / 562.5 Output Total 400 / 400 Balance 2234.25 / 2234.25 1952.5 / 1952.5 562.5 / 562.5 Microbiology Past 72 Hours 11/29/19 11:10 Wound - Hand Gram Stain - Final 11/29/19 11:10 Wound - Hand Wound Culture - Preliminary Gram positive organism 11/27/19 15:30 Blood Culture (Wb) - Anticubital Right Blood Culture - Preliminary No growth in 48 hours. 11/27/19 15:30 Blood Culture (Wb) - Anticubital Left Blood Culture - Preliminary No growth in 48 hours. 11/27/19 16:20 Urine, Clean Catch Urine Culture - Final Mixed Gram Positive Organisms 11/27/19 Unknown Urine, Clean Catch Streptococcus pneumoniae Antigen (M - Final 11/27/19 Unknown Urine, Clean Catch Legionella Antigen - Final Laboratory Results 11/30/19 06:14: WBC 11.5 H, RBC 4.64, Hgb 14.6, Hct 43.0, MCV 92.7, MCH 31.5, MCHC 34.0, RDW Std Deviation 44.6 H, RDW Coeff of Taylor 13.4, Plt Count 167, MPV 11.5, Immature Gran % (Auto) 0.400, Neut % (Auto) 74.1 H, Lymph % (Auto) 18.6 L, Terrell % (Auto) 5.2, Eos % (Auto) 1.3, Baso % (Auto) 0.4, Absolute Neuts (auto) 8.5 H, Absolute Lymphs (auto) 2.14, Total Counted 100, Neutrophils % (Manual) 72 H, Lymphocytes % (Manual) 25, Monocytes % (Manual) 3, Nucleated RBC % 0, Differential Comment MANUAL DIFF, Platelet Estimate ADEQUATE, RBC Morphology NORM C+C 11/30/19 06:14: Sodium 139, Potassium 4.4, Chloride 109 H, Carbon Dioxide 22.0, Anion Gap 8, BUN 19 H, Creatinine 1.51 H, Estim Creat Clear Calc 40.29, Est GFR (MDRD) Af Amer 58 L, Est GFR (MDRD) Non-Af 48 L, BUN/Creatinine Ratio 12.6, Glucose 98, Calcium 8.6 Discharge Diet: Low fat/ Low Cholesterol Discharge Activity: Return to Normal Activity Weight Bearing Status: Weight bearing as tolerated Call your doctor if you observe: Fever of 101 or Higher, Coldness, Increased Pain, Shortness of breath, Dizziness Home Medications: Medications to take at Discharge Finasteride [Proscar] 5 mg PO DAILY 02/04/17 Lisinopril 5 mg PO DAILY 11/27/19 Doxycycline [Vibramycin] 100 mg PO BID 7 Days #14 cap 11/30/19 Following Prescriptions Were Given to Patient: Doxycycline [Vibramycin] 100 mg PO BID 7 Days #14 cap Transmission Status: Received by [facility]/pharmacy #[id number] Primary Care Physician: Young Badillo III, MD [Primary Care Provider] - Please follow up with your Primary Care Physician in: 1-2 weeks Please Follow Up With: Jesus Espinoza MD When: 1-2 weeks Disposition: Home Minutes spent on discharge:: 40 Patient Condition:: Stable Medical Necessity - Tobacco Use Smoking Status: Heavy Smoker (>10/day) Tobacco Use: Cigarettes Meaningful Use Info Meaningful Use Diagnoses (Choose all that apply): None applicable Inpatient E&M: 81280 Disch Hosp
== END 2019-11-30 12:55 | disposition home or self-care (01) | DRG 871 ==
LOC: ED 17:53 → PCU 18:02
PROVIDERS: Admitting Provider Student in an Organized Health Care Education/Training Program; Emergency Provider Emergency Medicine; PCP Family Medicine; Visit Provider Student in an Organized Health Care Education/Training Program
DX: A41.9 Sepsis, unspecified organism (principal); J18.9 Pneumonia, unspecified organism; L03.114 Cellulitis of left upper limb; J44.0 Chronic obstructive pulmonary disease with (acute) lower respiratory infection; Z79.899 Other long term (current) drug therapy; F17.210 Nicotine dependence, cigarettes, uncomplicated; I10 Essential (primary) hypertension; N40.0 Benign prostatic hyperplasia without lower urinary tract symptoms
CPT/HCPCS: 36415; 71045; 73130; 80048; 80053; 81001; 83605; 83735; 84484; 85025; 85610; 85730; 87040; 87070; 87077; 87086; 87088; 87205; 87449; 87635; 93005; 94799; 97802; 99285; 99406; J7030; J7050; A4216; J0295; U0003